=== PATIENT | male | born 1990 | race Caucasian/White ===

== ENCOUNTER 2022-09-11 17:07 | Emergency (ER) | payer MEDICAID, SELFPAY ==
[2022-09-11 17:11] VITALS: BP 123/75; PULSE 75; RESP 18; TEMP 36.8; BMI 25.1
--- NOTE | 2022-09-11 17:17 | ED_ITS ---
HPI - General Adult General Time Seen by Provider: 17:18 Date Seen: 09/11/22 Chief complaint: Extremity Pain/Injury, Upper Stated complaint: Pain on back of right leg Time Seen by Provider: 09/11/22 17:08 Source: patient and RN notes reviewed Mode of arrival: ambulatory Limitations: no limitations History of Present Illness HPI narrative: Chest CT is a 32-year-old male coming in with right thigh pain, upper inner thigh that it is hurting. He states it is like an ache. It hurts if it is touched. He does feel he can walk okay but when driving it bothers him. 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 It is in the upper right medial thigh. Denies any trauma. Has not done any activity other than may be ride his motorcycle which he had not done for while. No acute shortness of breath or chest pain at this time but states every once in a while he will get a fleeting chest pain that preceded this. No fevers or chills. He is concerned that it might be a blood clot. Does not seem like there is pain in the knee or in the lower extremity, no back pain with this. He states his dad has had a heart attack and stroke, also believes that his dad has had blood clots in his extremities. Related Data Home Medications Medication Instructions Recorded Confirmed dextroamphetamine-amphetamine ER PO 09/11/22 20 mg 24hr capsule,extend release (Adderall XR) trazodone 50 mg tablet mg 09/11/22 Allergies Allergy/AdvReac Type Severity Reaction Status Date / Time No Known Drug Allergies Allergy Verified 09/11/22 17:15 Review of Systems Status of ROS: Reports: 6 or more systems reviewed and unremarkable except as noted in History and below Exam Const: Vital Signs, click to edit/add: Vital Signs - 24 hr 09/11/22 17:11 Temperature 98.3 F Pulse Rate [Right Pulse Oximeter] 75 Respiratory Rate 18 Blood Pressure [Ri ght Upper Arm] 123/75 Documenting provider has reviewed patient's vital signs: yes Common normals: no apparent distress, average body habitus, oriented x3, no limitations, healthy appearing, alert and well nourished General appearance: cooperative and comfortable HENMT: Common normals: hearing grossly normal bilaterally Eye: Common normals: PERRL, EOMs intact bilaterally, conjunctivae normal and no scleral icterus Conjunctiva: conjunctiva(e) normal Pupil: PERRL Resp: Common normals: normal respiratory effort, no retractions, no use of accessory muscles and clear to auscultation bilaterally Auscultation: clear to auscultation bilaterally Cardio: Common normals: regular rate, regular rhythm, S1 normal heart sound, S2 normal heart sound, no gallops, no clicks and no murmurs Rate: regular rate Rhythm: regular rhythm Heart sounds: S1 normal and S2 normal Extremity: Other: On inspection of his lower extremities, right side does seem definitely visibly larger than the other but there is no overlying skin change such is bruising, rash, petechial change, or ecchymosis, no erythema. His gait is normal. Seems to have full range of motion of his extremities. He is palpably tender along the medial thigh in it almost has a thicker indurated feeling deeper than the subcutaneous tissue. I do not not feel a definite discrete mass. The knee joint on this right leg is fully mobile no joint effusion. Normal lower extremity below the knee. Certainly no edema within the lower extremity. Neuro: Common normals: oriented x3 Sensorium/orientation: alert Course Course Hospital Course: We will obtain an ultrasound to rule out DVT. Certainly could be musculoskeletal issues including but not limited to mass. He is hemodynamically stable. Reevaluation(s) Reevaluation #1: Reviewed with patient that the preliminary report per the rn telephone triage is that there is no DVT. She feels the area of tenderness is over the hamstrings clinically on her impression. Radiology over-read it is waiting but given there is no DVT think this patient can discharge for further outpatient follow-up. Have reviewed with him that if he has ongoing symptoms he really needs to follow up and advanced imaging such as an MRI might need to be done of this extremity. There is no evidence of infection at this time but should he develop fever or redness of the area, would seek re-evaluation for that consideration. I cannot do MRI imaging at this time nor does seem to be needed emergently. Time: 17:54 Vital Signs Vital signs: Initial Vital Signs Temperature 98.3 F 09/11/22 17:11 Temperature Source Temporal Artery Scan 09/11/22 17:11 Pulse Rate 75 09/11/22 17:11 Respiratory Rate 18 09/11/22 17:11 Blood Pressure 123/75 09/11/22 17:11 Blood Pressure Mean 91 09/11/22 17:11 Blood Pressure Position Sitting 09/11/22 17:11 Vital Signs Temperature 98.3 F 09/11/22 17:11 Pulse Rate 75 09/11/22 17:11 Respiratory Rate 18 09/11/22 17:11 Blood Pressure 123/75 09/11/22 17:11 Temperature 98.3 F 09/11/22 17:11 Pulse Rate 75 09/11/22 17:11 Respiratory Rate 18 09/11/22 17:11 Blood Pressure 123/75 09/11/22 17:11 Critical Care Time Critical Care Time Critical Care Time: No Discharge Plan Discharge Clinical Impression: Acute pain of right thigh Condition: Stable Instructions: Leg Pain (ED) Additional Instructions: Follow-up with your primary care provider or contact Orthopedics for further evaluation and management of ongoing symptoms. Phone number for orthopedic office is [phone]. Can try Tylenol and/or ibuprofen as needed for pain control, follow bottle directions for dosing. Try icing the area and see if it helps. If I seems to make it worse, can try heat instead. Can try questioning under the leg to decrease pain. Ultimately, if pain is worsening, leg is increasing in size, have any development of fevers or redness over this leg, do need to be re-evaluated. Activity Level: Activity as Tolerated Prescriptions: No Action trazodone 50 mg tablet dextroamphetamine-amphetamine [Adderall XR] 20 mg capsule,extended release 24hr PO Follow Up/Referrals: Lexi Lovelace PA-C [Primary Care Provider] - Stand Alone Forms: [employer] Info Instructions
--- NOTE | 2022-09-11 17:21 | CRLHL7_ITS ---
For Patients: As a result of the Century Cures Act, medical imaging exams and procedure reports are released immediately into your electronic medical record. You may view this report before your referring provider. If you have questions, please contact your health care provider. INDICATION: Right posterior thigh pain. COMPARISON: None available. FINDINGS: Ultrasound of the venous drainage of the right lower extremity was performed using real-time talavera scale imaging (B mode 2D), color flow Doppler and spectral analysis. There is no evidence of deep venous thrombosis. There is normal antegrade flow from the posterior tibial and peroneal veins superiorly through the common femoral vein. There is normal augmentation and compressibility of these veins. The area of pain corresponds to the right hamstring muscle which is normal in appearance on ultrasound examination. The left common femoral vein is widely patent. IMPRESSION: No evidence of deep venous thrombosis on ultrasound examination of the right lower extremity. Dictated by Raghavendra Flores MD @ 09/11/2022 6:40:29 PM (Electronically Signed)
--- NOTE | 2022-09-11 17:29 | ED.NURSE ---
Patient to radiology for u/s.
== END 2022-09-11 18:11 | disposition home or self-care (01) ==
LOC: ED 18:07
PROVIDERS: Emergency Provider Family Medicine; PCP Physician Assistant Medical
DX: M79.651 Pain in right thigh (principal)
CPT/HCPCS: 93971; 99283

== ENCOUNTER 2023-06-04 18:15 | Emergency (ER) | payer MEDICAID, SELFPAY ==
[2023-06-04 18:16] VITALS: BP 123/78; PULSE 92; RESP 16; TEMP 37.1; O2SAT 100; BMI 22.8
--- NOTE | 2023-06-04 18:35 | CRLHL7_ITS ---
For Patients: As a result of the Cures Act, medical imaging exams and procedure reports are released immediately into your electronic medical record. You may view this report before your referring provider. If you have questions, please contact your health care provider. Indication: Trauma. Technique: Left ankle, 3 views. Comparison: None. Findings/Impression: Bones: Alignment is normal. No displaced fractures or bone lesions. Joint spaces: Unremarkable. Soft tissues: Unremarkable. Dictated by Francisco Schulte MD @ 06/04/2023 7:18:20 PM (Electronically Signed)
--- NOTE | 2023-06-04 18:42 | ED.LOWEXIN ---
HPI - Extremity Injury (Lower) General Chief Complaint: Extremity Pain/Injury, Lower Stated Complaint: L ankle injury Time Seen by Provider: 06/04/23 18:21 History of Present Illness HPI Narrative: This 32-year-old male comes in with an injury to his left ankle that occurred yesterday. He stepped on a uneven surface and rolled his ankle and has bruising and swelling on the lateral aspect of the left ankle. He does not report any other injury. He has been ambulating at times on this injury but reports significant discomfort. Related Data Home Medications Medication Instructions Recorded Confirmed dextroamphetamine-amphetamine ER PO 09/11/22 20 mg 24hr capsule,extend release (Adderall XR) trazodone 50 mg tablet mg 09/11/22 Previous Rx's Medication Instructions Recorded ketorolac 10 mg tablet 10 mg PO Q8H 5 days #15 tabs 06/04/23 Allergies Allergy/AdvReac Type Severity Reaction Status Date / Time No Known Drug Allergies Allergy Verified 06/04/23 18:20 Review of Systems Status of ROS: Reports: 10 or more systems reviewed and unremarkable except as noted in History and below Narrative: Constitutional: No fevers, no weight gain or loss. Eyes: No discharge. No vision changes. HENT: No congestion, no sore throat, no ear pain. Cardiovascular: No chest pain, no palpitations. Respiratory: No shortness of breath, no wheezes, no cough. Gastrointestinal: No abdominal pain, no vomiting, no diarrhea. Genitourinary: No dysuria, no hematuria. Musculoskeletal: Left ankle injury as described above. Skin: No rashes, no pruritis. Neurological: No dizziness, weakness, sensory change, speech change. Endo/Heme/Allergies: No bruising or bleeding. No polydipsia. Pysch: no suicidality, no anxiety, no insomnia. All other systems reviewed and are negative. PFSH PFSH Social History Smoking Status: Former smoker Do you use any of these nicotine containing products: None Second hand tobacco smoke exposure: No How often do you have a drink containing alcohol: monthly or less How often do you have six or more drinks on one occasion: Never AUDIT-C Alcohol total score: 1 Non-prescribed substance use: marijuana (any form) Exam Narrative: Exam Narrative: Constitutional: Well-developed, well-nourished, no acute distress. HEENT: Normocephalic, atraumatic. Neck: Normal range of motion. Nontender. Supple. Heart: Regular. No murmurs. Normal rate. Intact distal pulses. Lungs: Clear to auscultation. No chest discomfort. No wheezes, rhonchi, or rales. Abdomen: Normal bowel sounds. Nontender. No rebound tenderness. Genitalia: Deferred. Back: No midline tenderness. Normal range of motion. Extremities: Left ankle has significant swelling on the lateral aspect with bruising. No tenderness when palpating the medial malleolus. No ligament instability. Skin: Intact. No rash. Warm. No erythema or pallor. Neurologic: No altered sensation. No weakness. Alert and oriented. Psychiatric: No suicidality. No anxiety or depression. No insomnia. Nursing notes and vitals signs are reviewed. Const: Vital Signs, click to edit/add: Vital Signs - 24 hr 06/04/23 18:16 Temperature 98.7 F Pulse Rate [Left P ulse Oximeter] 92 Respiratory Rate 16 Blood Pressure [Ri ght Upper Arm] 123/78 Pulse Oximetry 100 Oxygen Delivery Me thod Room Air Course Vital Signs Vital signs: Initial Vital Signs Temperature 98.7 F 06/04/23 18:16 Temperature Source Temporal Artery Scan 06/04/23 18:16 Pulse Rate 92 06/04/23 18:16 Respiratory Rate 16 06/04/23 18:16 Blood Pressure 123/78 06/04/23 18:16 Blood Pressure Mean 93 06/04/23 18:16 Blood Pressure Position Sitting 06/04/23 18:16 Pulse Oximetry 100 06/04/23 18:16 Oxygen Delivery Method Room Air 06/04/23 18:16 Vital Signs Temperature 98.7 F 06/04/23 18:16 Pulse Rate 92 06/04/23 18:16 Respiratory Rate 16 06/04/23 18:16 Blood Pressure 123/78 06/04/23 18:16 Pulse Oximetry 100 06/04/23 18:16 Oxygen Delivery Method Room Air 06/04/23 18:16 Temperature 98.7 F 06/04/23 18:16 Pulse Rate 92 06/04/23 18:16 Respiratory Rate 16 06/04/23 18:16 Blood Pressure 123/78 06/04/23 18:16 Pulse Oximetry 100 06/04/23 18:16 Oxygen Delivery Method Room Air 06/04/23 18:16 MDM - Extremity Injury (Lower) MDM Narrative Medical decision making narrative: This patient comes in with an injury to his left ankle. He has significant swelling and bruising on the lateral aspect. His ligament exam however is normal in that there is no instability of the ankle joint. X-ray images by my review with radiology report pending shows no sign of fracture or dislocation. The patient is able to ambulate. He is able to do so with a limp but seems to be functioning well enough and therefore is declining any crutches or other aids for ambulating. I did provide a prescription for Toradol. I encouraged increase activity as tolerated. Discharge Plan Discharge Clinical Impression: Ankle sprain and strain Patient Disposition: Home, Self-Care Condition: Stable Instructions: Ankle Sprain (DC), Ankle Strain (ED) Additional Instructions: Take medication as prescribed and needed. Increase activity as tolerated. Follow up with MD or return if worsening. Prescriptions: New ketorolac 10 mg tablet 10 mg PO Q8H 5 Days Qty: 15 0RF No Action trazodone 50 mg tablet dextroamphetamine-amphetamine [Adderall XR] 20 mg capsule,extended release 24hr PO Follow Up/Referrals: Lexi Lovelace PA-C [Primary Care Provider] - Stand Alone Forms: [employer] Info Instructions
== END 2023-06-04 19:27 | disposition home or self-care (01) ==
PROVIDERS: Emergency Provider Emergency Medicine Emergency Medical Services; PCP Physician Assistant Medical
DX: S93.402A Sprain of unspecified ligament of left ankle, initial encounter (principal); X50.1XXA Overexertion from prolonged static or awkward postures, initial encounter
CPT/HCPCS: 73610; 99283; 99284

== ENCOUNTER 2023-07-30 17:16 | Emergency (ER) | payer MEDICAID, SELFPAY ==
[2023-07-30 17:24] VITALS: BP 133/77; PULSE 92; RESP 18; TEMP 37.4; O2SAT 99; BMI 26.6
--- NOTE | 2023-07-30 18:02 | ED.SKABFB ---
HPI - Skin/Abscess/Foreign Bdy General Date Seen: 07/30/23 Chief complaint: Skin/Abscess/Foreign Body Stated complaint: Chest pain, arms itch Time Seen by Provider: 07/30/23 17:49 Source: patient Mode of arrival: ambulatory Limitations: no limitations History of Present Illness HPI narrative: Patient is a 33-year-old gentleman who presents here for evaluation of a rash that he has had on his arms for approximately 1 week, is only on his forearms, does not go above this. He notices a very itchy, and relates it to starting Seroquel approximately 3 weeks ago. Takes the Seroquel for insomnia. He was on trazodone before would like to go back on this. Does notice any rash anywhere else. Denies any shortness of breath or any oropharyngeal swelling. He also has a history of chest pain that dates back months whenever he takes a deep breath any can feel a rate of the xiphoid, he is not short of breath, and notices no pain with exertion. No history of trauma or injury MD complaint: rash Relieving factors: none Exacerbating factors: none Context: none Associated symptoms: denies other symptoms Treatments prior to arrival: none Related Data Home Medications Medication Instructions Recorded Confirmed dextroamphetamine-amphetamine ER 20 mg PO 09/11/22 20 mg 24hr capsule,extend release (Adderall XR) trazodone 50 mg tablet 50 mg 09/11/22 quetiapine 50 mg tablet,extended 50 mg PO QPM 07/30/23 07/30/23 release 24 hr Allergies Allergy/AdvReac Type Severity Reaction Status Date / Time No Known Drug Allergies Allergy Verified 07/30/23 17:24 Review of Systems Status of ROS: Reports: 10 or more systems reviewed and unremarkable except as noted in History and below [facility] Social History Smoking Status: Former smoker Do you use any of these nicotine containing products: None Second hand tobacco smoke exposure: No How often do you have a drink containing alcohol: monthly or less How many standard drinks containing alcohol do you have on a typical day: 1 or 2 How often do you have six or more drinks on one occasion: Never AUDIT-C Alcohol total score: 1 Non-prescribed substance use: marijuana (any form) service: No Exam Narrative: Exam Narrative: On examination in room 6 he is in no apparent distress he is pleasant alert, there is a bit of excoriated rash on his extensor surfaces of his arms bilaterally. Does not go above his elbows. It does not appear to be so much on his hands. No other rashes noted anywhere, oropharynx is normal, neck is supple chest is clear heart sounds are normal. Const: Vital Signs, click to edit/add: Vital Signs - 24 hr 07/30/23 17:24 Temperature 99.3 F Pulse Rate [Pulse Oximeter] 92 Respiratory Rate 18 Blood Pressure [Ri ght Upper Arm] 133/77 Pulse Oximetry 99 Oxygen Delivery Me thod Room Air Documenting provider has reviewed patient's vital signs: yes Course Vital Signs Vital signs: Initial Vital Signs Temperature 99.3 F 07/30/23 17:24 Temperature Source Temporal Artery Scan 07/30/23 17:24 Pulse Rate 92 07/30/23 17:24 Pulse Rhythm Regular 07/30/23 17:24 Pulse Strength 3+ Normal 07/30/23 17:24 Respiratory Rate 18 07/30/23 17:24 Blood Pressure 133/77 07/30/23 17:24 Blood Pressure Mean 95 07/30/23 17:24 Blood Pressure Position Sitting 07/30/23 17:24 Pulse Oximetry 99 07/30/23 17:24 Oxygen Delivery Method Room Air 07/30/23 17:24 Vital Signs Temperature 99.3 F 07/30/23 17:24 Pulse Rate 92 07/30/23 17:24 Respiratory Rate 18 07/30/23 17:24 Blood Pressure 133/77 07/30/23 17:24 Pulse Oximetry 99 07/30/23 17:24 Oxygen Delivery Method Room Air 07/30/23 17:24 Temperature 99.3 F 07/30/23 17:24 Pulse Rate 92 07/30/23 17:24 Respiratory Rate 18 07/30/23 17:24 Blood Pressure 133/77 07/30/23 17:24 Pulse Oximetry 99 07/30/23 17:24 Oxygen Delivery Method Room Air 07/30/23 17:24 MDM - Skin/Abscess/Foreign Bdy MDM Narrative Medical decision making narrative: I discussed with him I do not think this is an acute rash, this seems to be more like a plant dermatitis type situation. I would recommend that he stay on the Seroquel in follow-up with his primary to see about this. We will do a chest x-ray to check on his chest, but this sounds like a more chronic issue. Medical Records Attestation: I reviewed the patient's medical records. Imaging Data Chest x-ray: Attestation: I have reviewed the pertinent imaging results. My impression: Negative chest x-ray Discharge Plan Discharge Clinical Impression: Rash, Chest pain Patient Disposition: Home, Self-Care Condition: Stable Instructions: Chest Pain (DC), Acute Rash (ED) Additional Instructions: Home, rest, chest x-ray was negative, reassurance given. I do believe the rash on her arms is not from her Seroquel, and more likely from something you been exposed to either plant, or sun. Claritin would be a good medication to take 10 mg a day. Follow-up with Lexi Prescriptions: No Action quetiapine 50 mg tablet extended release 24 hr 50 mg PO QPM trazodone 50 mg tablet 50 mg Hold Instructions: currently on hold dextroamphetamine-amphetamine [Adderall XR] 20 mg capsule,extended release 24hr 20 mg PO Follow Up/Referrals: Lexi Lovelace PA-C [Primary Care Provider] - Stand Alone Forms: [employer] Info Instructions
--- NOTE | 2023-07-30 18:13 | CRLHL7_ITS ---
For Patients: As a result of the Century Cures Act, medical imaging exams and procedure reports are released immediately into your electronic medical record. You may view this report before your referring provider. If you have questions, please contact your health care provider. INDICATION: Chest pain COMPARISON: None TECHNIQUE: PA and lateral views of the chest were acquired FINDINGS: TUBES AND LINES: None. HEART AND MEDIASTINUM: The heart size is normal. The mediastinal contour appears normal for patient age. LUNGS AND PLEURAL SPACES: The lungs appear normal.The pleural spaces are unremarkable. OSSEOUS STRUCTURES: Age-appropriate appearance. No acute focal finding. IMPRESSION: No evidence of active pulmonary disease. Dictated by Bonilla Guido MD @ 07/30/2023 7:06:54 PM (Electronically Signed)
== END 2023-07-30 18:40 | disposition home or self-care (01) ==
LOC: ED 18:09
PROVIDERS: Emergency Provider Family Medicine; PCP Physician Assistant Medical
DX: R21 Rash and other nonspecific skin eruption (principal); R07.9 Chest pain, unspecified
CPT/HCPCS: 71046; 99283; 99284

== ENCOUNTER 2023-08-18 09:43 | Emergency (ER) | payer MEDICAID, SELFPAY ==
[2023-08-18] VITALS (16 sets, daily range): BP systolic 106–128; BP diastolic 58–78; PULSE 88–98; RESP 16; TEMP 37; O2SAT 96–99; BMI 22.8
[2023-08-18] MEDS: LORazepam 2 MG/ML inj 1 MG IM (10:33)
[2023-08-18] MEDS: KETOROLAC 30 MG/ML inj IM (10:34)
[2023-08-18 11:00] LABS: Amphetamine Screen Urine Negative (Negative); Barbiturate Screen Urine Negative (Negative); Benzodiazepines Screen Urine Negative (Negative); Cannabinoid Screen Urine POSITIVE (Negative); Cocaine Screen Urine Negative (Negative); Methadone Screen Urine Negative (Negative); Methamphetamines Screen Urine Negative (Negative); Opiate Screen Urine Negative (Negative); Oxycodone Screen Urine Negative (Negative); Phencyclidine Screen Urine Negative (Negative); Tricyclic Antidepressant Urine Negative (Negative)
--- NOTE | 2023-08-18 11:25 | CRLHL7_ITS ---
For Patients: As a result of the Cures Act, medical imaging exams and procedure reports are released immediately into your electronic medical record. You may view this report before your referring provider. If you have questions, please contact your health care provider. Indication: Back pain Technique: Lumbar spine 2 view Comparison: CT June 27, 2019 IMPRESSION: No fractures. Disc spaces maintained. No spondylolisthesis. Dictated by Zechariah García MD @ 08/18/2023 11:56:22 AM (Electronically Signed)
--- NOTE | 2023-08-18 11:36 | ED.BACK ---
HPI - Back Pain/Injury General Date Seen: 08/18/23 Chief Complaint: Back Injury/Pain Stated Complaint: Lower back pain Time Seen by Provider: 08/18/23 10:19 Source: patient Mode of arrival: wheelchair Limitations: no limitations History of Present Illness HPI Narrative: Patient is a 33-year-old gentleman who presents here with back pain, he tried to go to work this morning in the back pain was so bad in his lower back into both of his hamstrings, associated with spasm that he came to the emergency room, the nurse had to bring him to the back in a wheelchair. He is laying in the position on his right side when I see him in the room. She describes no history of falls injury, trauma, fevers chills or sweats associated with this. He does have a remote past history 10 years ago of her when use. Tells me that he beat that it has not used any narcotics since. No history of any fevers chills or sweats, redness rashes into the legs, bowel or bladder or any incontinence of stool. He is not taking any medication today, he did take some Tylenol from his mom he yesterday, as she is eye re no patient. There is a have past history of occasional back pain although he tells me not this bad MD elicited complaint: back pain Severity: severe Similar Symptoms Previously: No Quality: burning, sharp, dull and spasming Location: lumbar spine Radiation: left upper leg and right upper leg Exacerbating factors: movement, sitting upright, walking and coughing/sneezing Relieving factors: immobilization and medication Treatments prior to arrival: acetaminophen Work related injury: No Related Data Home Medications Medication Instructions Recorded Confirmed dextroamphetamine-amphetamine ER 40 mg PO DAILY 09/11/22 08/18/23 20 mg 24hr capsule,extend release (Adderall XR) quetiapine 50 mg tablet,extended 50 mg PO QPM 07/30/23 08/18/23 release 24 hr Previous Rx's Medication Instructions Recorded cyclobenzaprine 10 mg tablet 10 mg PO TID PRN muscle spasm #30 08/18/23 tabs ketorolac 10 mg tablet 10 mg PO TID PRN pain 5 days #14 08/18/23 tabs prednisone 20 mg tablet 20 mg PO BID #10 tabs 08/18/23 Allergies Allergy/AdvReac Type Severity Reaction Status Date / Time No Known Drug Allergies Allergy Verified 08/18/23 09:50 Review of Systems Status of ROS: Reports: 10 or more systems reviewed and unremarkable except as noted in History and below [facility] Social History Smoking Status: Current every day smoker What tobacco products do you use: cigars Do you use any of these nicotine containing products: None Second hand tobacco smoke exposure: No How often do you have a drink containing alcohol: never AUDIT-C Alcohol total score: 0 Non-prescribed substance use: marijuana (any form) service: No Exam Narrative: Exam Narrative: Patient is seen in room 7, he is in some moderate distress, any sort of touching his lower back causes him to be in pain. There is no redness rashes, he presents in the flexed posture position. His abdomen is otherwise soft there is no guarding no past splenomegaly, normal perianal sensation is noted. He is able straight no both of his legs, his EHLs great toe flexors ankle dorsiflexors plantar flexors knee flexors and extensors and hip flexors are graded 5/5 power bilaterally SLR is lying down, or positive approximately 20? with pain. And spasm in his lower back, there is no redness rashes overload his lower extremities. We will give him some Toradol, and some Ativan, so would lecandida can get some imaging, Const: Vital Signs, click to edit/add: Vital Signs - 24 hr 08/18/23 09:51 08/18/23 10:14 08/18/23 10:15 Temperature 98.6 F Pulse Rate 94 93 Pulse Rate [Pulse Oximeter] 88 Respiratory Rate 16 16 Blood Pressure 113/72 Blood Pressure [Le ft Upper Arm] 128/78 Pulse Oximetry 99 96 98 Oxygen Delivery Me thod Room Air 08/18/23 10:22 08/18/23 10:30 08/18/23 10:32 Temperature Pulse Rate 98 89 91 Pulse Rate [Pulse Oximeter] Respiratory Rate Blood Pressure 107/58 L Blood Pressure [Le ft Upper Arm] Pulse Oximetry 99 98 97 Oxygen Delivery Me thod 08/18/23 10:45 08/18/23 11:00 08/18/23 11:01 Temperature Pulse Rate 92 88 93 Pulse Rate [Pulse Oximeter] Respiratory Rate Blood Pressure 106/62 Blood Pressure [Le ft Upper Arm] Pulse Oximetry 98 96 96 Oxygen Delivery Me thod Course Course ED Course: X-ray showed no acute findings, patient responded well to the Ativan, and Toradol, is able to walk around and was able to walk about here with no problems. He told me that he does use Flexeril from his primary care physician and I will call this in. We also let some prednisone some Toradol as needed. Ice also. He was comfortable this plan is, we went over with worsening signs and symptoms. Vital Signs Vital signs: Initial Vital Signs Temperature 98.6 F 08/18/23 09:51 Temperature Source Temporal Artery Scan 08/18/23 09:51 Pulse Rate 88 08/18/23 09:51 Pulse Rhythm Regular 08/18/23 09:51 Pulse Strength 3+ Normal 08/18/23 09:51 Respiratory Rate 16 08/18/23 09:51 Blood Pressure 128/78 08/18/23 09:51 Blood Pressure Mean 94 08/18/23 09:51 Blood Pressure Position Supine 08/18/23 09:51 Pulse Oximetry 99 08/18/23 09:51 Oxygen Delivery Method Room Air 08/18/23 09:51 Vital Signs Temperature 98.6 F 08/18/23 09:51 Pulse Rate 88 08/18/23 09:51 Respiratory Rate 16 08/18/23 09:51 Blood Pressure 128/78 08/18/23 09:51 Pulse Oximetry 99 08/18/23 09:51 Oxygen Delivery Method Room Air 08/18/23 09:51 Temperature 98.6 F 08/18/23 09:51 Pulse Rate 93 08/18/23 11:01 Respiratory Rate 16 08/18/23 10:15 Blood Pressure 106/62 08/18/23 11:01 Pulse Oximetry 96 08/18/23 11:01 Oxygen Delivery Method Room Air 08/18/23 09:51 MDM - Back Pain/Injury MDM Narrative Medical decision making narrative: Life-threatening differential diagnosis considered include: Cauda equina an epidural abscess, other differential diagnosis considered includes sprain, contusion, nerve root entrapment, radiculopathy, muscle spasm, urolithiasis, lumbar fracture, pyelonephritis, appendicitis, biliary colic, as well as other etiologies. The patient denies saddle anesthesia bowel or bladder incontinence or lower extremity weakness, recent weight loss, or history of malignancy. Medical Records Attestation: I reviewed the patient's medical records. Lab Data Attestation: I reviewed the patient's lab results. Labs: Lab Results 08/18/23 Range/Units Unknown Urine Opiates Screen Negative (Negative) Ur Oxycodone Screen Negative (Negative) Urine Methadone Screen Negative (Negative) Ur Propoxyphene Screen Negative (Negative) Ur Barbiturates Screen Negative (Negative) U Tricyclic Antidepress Negative (Negative) Ur Phencyclidine Scrn Negative (Negative) Ur Amphetamines Screen Negative (Negative) U Methamphetamines Scrn Negative (Negative) U Benzodiazepines Scrn Negative (Negative) Urine Cocaine Screen Negative (Negative) U Marijuana (THC) Screen POSITIVE A (Negative) Ur Drug Screen Comment See Note Imaging Data Lumbar x-ray: Attestation: I have reviewed the pertinent imaging results. My impression: No acute findings Radiologist's impression: Patient: PAVEL FELTON Facility: [facility] Site . Site : 1990 Study: XRay Spine Lumbar 2 VIEWS-08/18/2023 11:50:11 AM Ordering Physician: Joseline Deng Final Report: Indication: Back pain Technique: Lumbar spine 2 view Comparison: CT June 27, 2019 IMPRESSION: No fractures. Disc spaces maintained. No spondylolisthesis. Dictated by Zechariah García MD @ 08/18/2023 11:56:22 AM (Electronic Signature) Discharge Plan Discharge Clinical Impression: Strain of lumbar region Patient Disposition: Home, Self-Care Condition: Improved Instructions: Muscle Strain (DC), Back Pain (ED), Lumbar Brace (DC), Lower Back Exercises (ED), Cold Compress or Soak (ED) Additional Instructions: Home rest medications as directed, follow-up with primary care in 3-4 days if ongoing care or work note needed. I have given you work note for 72 hours. Your x-rays were negative, Return here if signs and symptoms of worsening, Activity Level: Light activity Prescriptions: New cyclobenzaprine 10 mg tablet 10 mg PO TID PRN (Reason: muscle spasm) Qty: 30 0RF prednisone 20 mg tablet 20 mg PO BID Qty: 10 0RF ketorolac 10 mg tablet 10 mg PO TID PRN (Reason: pain) 5 Days Qty: 14 0RF No Action quetiapine 50 mg tablet extended release 24 hr 50 mg PO QPM dextroamphetamine-amphetamine [Adderall XR] 20 mg capsule,extended release 24hr 40 mg PO DAILY Follow Up/Referrals: Lexi Lovelace PA-C [Primary Care Provider] - Stand Alone Forms: [facility] Info Instructions
--- NOTE | 2023-08-18 12:31 | ED.NURSE ---
Ambulated in hallway stand by assist for 30 feet. Said ouch multiple times. Able bare wait without being unbalanced. Asked patient if he felt safe to go home. Patient stated I have to, i have no choice. Patient requested a muscle relaxer from .
== END 2023-08-18 12:53 | disposition home or self-care (01) ==
PROVIDERS: Emergency Provider Family Medicine; PCP Physician Assistant Medical
DX: S39.012A Strain of muscle, fascia and tendon of lower back, initial encounter (principal)
CPT/HCPCS: 72100; 80306; 99283; 99284; J1885; J2060

== ENCOUNTER 2024-01-02 08:37 | Emergency (ER) | payer OTHER, MEDICAID, SELFPAY ==
[2024-01-02 08:47] VITALS: BP 119/77; PULSE 75; RESP 16; TEMP 36.7; O2SAT 98; BMI 26.6
--- NOTE | 2024-01-02 09:19 | ED.GENADULT ---
HPI - General Adult General Time Seen by Provider: 09:19 Date Seen: 01/02/24 Chief complaint: Nausea/Vomiting Stated complaint: chest pains Time Seen by Provider: 01/02/24 09:19 Source: patient and RN notes reviewed Mode of arrival: ambulatory Limitations: no limitations History of Present Illness HPI narrative: This 33-year-old male who is coming in with multiple concerns. Has had really watery diarrhea for about 3 days. No reported blood. No reported fevers. Overnight he developed nausea and vomiting. He has not been able to keep down any fluids. He is wondering if he needs some antibiotics or prednisone to settle his stomach and got down. He also brings up his chest pain. He states he has been to his doctor, he gets freaked out because his dad had a stroke and a heart attack. He has had this chest pain for quite some time. He states months, told me a couple months. However, in review of his records, see that he was in on 07/30/2023 to the ER. He did bring up chest discomfort during that visit, was also being seen for rash. He describes this as sharp sometimes with turning or movement. He did have a negative chest x-ray on his visit in July. He had already had a point of care drawn here and I have been able to review his EKG, they are normal. He wonders if he should go to [place] or be seen at the [facility]. I reviewed with him that this pain he is describing is very likely not his heart. It sounds musculoskeletal. He points along his anterior costochondral junction where he will feel this pain. He states he is worried about possible asbestosis or mold as he lives in a house is over 200 years old. I did review with him that asbestosis will show up on a chest x-ray but there is no specific blood test for this or for mold that I am aware of. He was wondering if blood work could be done for that. He does describe the sensation of the chest pain when he gets it is almost like glass in his chest. Related Data Home Medications Medication Instructions Recorded Confirmed dextroamphetamine-amphetamine ER 40 mg PO DAILY 09/11/22 08/18/23 20 mg 24hr capsule,extend release (Adderall XR) quetiapine 50 mg tablet,extended 50 mg PO QPM 07/30/23 08/18/23 release 24 hr Previous Rx's Medication Instructions Recorded cyclobenzaprine 10 mg tablet 10 mg PO TID PRN muscle spasm #30 08/18/23 tabs ketorolac 10 mg tablet 10 mg PO TID PRN pain 5 days #14 08/18/23 tabs prednisone 20 mg tablet 20 mg PO BID #10 tabs 08/18/23 ondansetron 4 mg disintegrating 4 mg PO Q6H PRN nausea and 01/02/24 tablet vomiting #20 tabs Allergies Allergy/AdvReac Type Severity Reaction Status Date / Time No Known Drug Allergies Allergy Verified 08/18/23 09:50 Review of Systems Status of ROS: Reports: 6 or more systems reviewed and unremarkable except as noted in History and below [facility] Social History Smoking Status: Current some day smoker What tobacco products do you use: cigars Do you use any of these nicotine containing products: None Second hand tobacco smoke exposure: No How often do you have a drink containing alcohol: never How often do you have six or more drinks on one occasion: Never AUDIT-C Alcohol total score: 0 Non-prescribed substance use: former substance user and marijuana (any form) service: No Exam Const: Vital Signs, click to edit/add: Vital Signs - 24 hr 01/02/24 08:47 01/02/24 09:30 01/02/24 10:14 Temperature 98.0 F Pulse Rate [Pulse Oximeter] 75 80 Respiratory Rate 16 16 Blood Pressure [Ri ght Upper Arm] 119/77 113/67 Pulse Oximetry 98 99 99 Oxygen Delivery Me thod Room Air Room Air Markel is a 33-year-old male that is alert, interactive, no apparent distress. Sclera clear, symmetrical facial function coming able speak in complete sentences, speech and voice normal. Lungs are clear, good air entry, no wheezing or crackles. CV regular rate and rhythm, no murmur, normal S1-S2, no S3-S4. He does complain of some pain along the right costochondral junction, it is not specifically over just 1 area, difficult to say if this is totally reproducible of his symptoms. Abdomen is soft, nondistended, no organomegaly, nontender, no rebound or guarding, bowel sounds sound normal. He does have many tattoos but note no rash over his skin. Is ambulatory in the ED. Of note, had to go to the bathroom for defecation and did need to stop our evaluation. Documenting provider has reviewed patient's vital signs: yes Course Course ED Course: Will establish an IV, give him IV fluids and Zofran. Will check some baseline labs including a CBC. Will get a portable chest x-ray. His belly is soft, history seems to be consistent with a viral gastroenteritis likely. Do need to find out if he has had any travel or ill contacts, do need to discuss with him further rationale for none treatment with antibiotics or steroids but will await some of our labs 1st. May need to consider stool studies. This does not seem to be consistent with the level of illness I would expect for C difficile colitis. Outside of the chest x-ray which will be portable, have reviewed with him as troponin and EKG are normal. His symptoms are not consistent with cardiac disease and have been present for over 6 months. I do understand his concern in he certainly is at risk for heart disease in the future given his family history, male status. Reevaluation(s) Time of Reevaluation #1: 11:15 Reevaluation #1: Patient is requesting to go at this time, did apologize that had not been able to get back in quicker but there was a high volume of patients that proceeded to come in the ER after him. Reviewed his normal labs. He was wondering about being on prednisone her antibiotic, discussed the rationale of why those are not indicated in actually contraindicated. He has not had any travel, no known ill contacts. His daughter is had a bit of a cough at home but no diarrheal or vomiting symptoms. He is feeling better, I did pull his IV while in the room as he did wanted out. 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 We discussed use of Zofran and discharge to home for further outpatient monitoring. Vital Signs Vital signs: Initial Vital Signs Temperature 98.0 F 01/02/24 08:47 Temperature Source Temporal Artery Scan 01/02/24 08:47 Pulse Rate 75 01/02/24 08:47 Respiratory Rate 16 01/02/24 08:47 Blood Pressure 119/77 01/02/24 08:47 Blood Pressure Mean 91 01/02/24 08:47 Blood Pressure Position Supine 01/02/24 08:47 Pulse Oximetry 98 01/02/24 08:47 Oxygen Delivery Method Room Air 01/02/24 08:47 Vital Signs Temperature 98.0 F 01/02/24 08:47 Pulse Rate 75 01/02/24 08:47 Respiratory Rate 16 01/02/24 08:47 Blood Pressure 119/77 01/02/24 08:47 Pulse Oximetry 98 01/02/24 08:47 Oxygen Delivery Method Room Air 01/02/24 08:47 Temperature 98.0 F 01/02/24 08:47 Pulse Rate 80 01/02/24 10:14 Respiratory Rate 16 01/02/24 10:14 Blood Pressure 113/67 01/02/24 10:14 Pulse Oximetry 99 01/02/24 10:14 Oxygen Delivery Method Room Air 01/02/24 10:14 Medications Administered Medications: Discontinued Medications Generic Name Dose Route Start Last Admin Trade Name Freq PRN Reason Stop Dose Admin Sodium Chloride 1,000 mls @ 1,000 mls/hr 01/02/24 09:30 01/02/24 10:32 0.9 % Sodium Chloride 1000 Ml IV 01/02/24 10:29 Infused .Q1H MARY ELLEN Infusion Ondansetron HCl 4 mg 01/02/24 09:30 01/02/24 09:40 Ondansetron 2 Mg/Ml Inj IVP 01/02/24 09:31 4 mg ONCE ONE Administration Medical Decision Making Lab Data Lab results reviewed: Yes I reviewed the patient's lab results Labs: Lab Results 01/02/24 Range/Units 09:05 WBC 7.66 (4.50-11.00) K/uL RBC 5.58 (4.30-5.90) m/uL Hgb 16.6 (13.5-17.5) gm/dL Hct 49.0 (37.0-53.0) % MCV 88 (80-100) fL MCH 30 (26-34) pg MCHC 34 (32-36) gm/dL RDW Coeff of Noris 12.1 (11.5-15.5) % Plt Count 383 (140-440) K/uL Neut % (Auto) 63.0 (42.0-72.0) % Lymph % (Auto) 17.9 L (20-44) % Worth % (Auto) 15.7 H (0.0-11.0) % Eos % (Auto) 2.5 (0.0-7.0) % Baso % (Auto) 0.8 (0.0-3.0) % Neut # (Auto) 4.83 (1.7-7.0) K/uL Lymph # (Auto) 1.40 (0.90-2.90) K/uL Worth # (Auto) 1.20 H (0.00-0.90) K/UL Eos # (Auto) 0.19 (0.00-0.50) K/uL Baso # (Auto) 0.06 (0.00-0.30) K/uL Abs Immat Gran (auto) 0.01 (0.00-0.30) K/uL Imm/Tot Granulo (auto) 0.1 % Sodium 140 (135-149) mmol/L Potassium 4.2 (3.6-5.1) mmol/L Chloride 108 (96-114) mmol/L Carbon Dioxide 20 (20-32) mmol/L Anion Gap 12 (7-15) mEq/L BUN 15 (5-24) mg/dL Creatinine 1.0 (0.5-1.5) mg/dL Estimated Creat Clear 106.05 Estimated GFR 103 ml/min Glucose 91 (60-115) mg/dL Lactate 0.8 (0.5-1.9) mmol/L Calcium 9.2 (8.4-10.6) mg/dL Total Bilirubin 1.0 (0.1-1.5) mg/dL AST 35 (12-35) U/L ALT 31 (4-50) U/L Alkaline Phosphatase 76 (40-150) U/L C-Reactive Protein 1.0 (0.5-1.0) mg/dL Total Protein 7.9 (6.0-8.3) g/dL Albumin 4.8 (3.3-5.0) g/dL POC Troponin I 0.00 L (0.01-0.04) ng/ml Imaging Data Chest x-ray: Attestation: I have reviewed the pertinent imaging results. Radiologist's impression: Patient: MARKEL FELTON Facility:[facility] Patient ID:?[id number] Site Patient ID:?[id number]. Site :?1990 Study:?XRay Chest PORTABLE 1 VIEW-01/02/2024 9:55:29 AM Ordering Physician:Jorge Morfin Final Report: INDICATION: Chest pain. TECHNIQUE: Chest 2 views. COMPARISON: Chest radiograph on July 30, 2023 FINDINGS: Cardiovascular and mediastinum: Heart size and vasculature are normal in caliber and appearance. Lungs and pleural spaces: Lungs are clear. No sign of infiltrate or mass. No sign of pleural effusion. No pneumothorax. Bones and soft tissues: No significant findings. IMPRESSION: No acute cardiopulmonary process. Dictated by Juanito Hernandez MD @ 01/02/2024 10:18:17 AM (Electronic Signature) ECG Data Attestation: I personally reviewed and interpreted this ECG as follows: (Normal sinus rhythm, 67 beats per minute. No ischemic change. QT corrected for and 26 milliseconds.) Prior ECG tracings: not available for review Discharge Plan Discharge Clinical Impression: Gastroenteritis and colitis, viral, Musculoskeletal chest pain Patient Disposition: Home, Self-Care Condition: Stable Instructions: Gastroenteritis (ED), Nutrition Tips for Relief of Diarrhea (ED) Additional Instructions: Can use Zofran as needed for any further nausea or vomiting. This will allow you to drink fluids. As you feel better, it advance her diet back to normal. Can follow the handout to help decrease diarrhea, again, as you improve, can go back to her normal diet. If you are not improving over the next 3-5 days, feel you are worsening at any point with development of fevers, blood in stool, abdominal pain, do recommend re-evaluation. I do think your chest pain represents musculoskeletal chest pain, has been present for over 6 months and does seem to come with movement from what you describe. Do recommend that you return to her primary care provider's to discuss this with them further, make sure that they do not want to do any further testing. Activity Level: Activity as Tolerated Prescriptions: New ondansetron 4 mg tablet,disintegrating 4 mg PO Q6H PRN (Reason: nausea and vomiting) Qty: 20 0RF No Action quetiapine 50 mg tablet extended release 24 hr 50 mg PO QPM cyclobenzaprine 10 mg tablet 10 mg PO TID PRN (Reason: muscle spasm) Qty: 30 0RF prednisone 20 mg tablet 20 mg PO BID Qty: 10 0RF ketorolac 10 mg tablet 10 mg PO TID PRN (Reason: pain) 5 Days Qty: 14 0RF dextroamphetamine-amphetamine [Adderall XR] 20 mg capsule,extended release 24hr 40 mg PO DAILY Follow Up/Referrals: Lexi Lovelace, CJ [Primary Care Provider] - Stand Alone [facility]: [facility] Info Instructions
[2024-01-02 09:30] VITALS: O2SAT 99
--- NOTE | 2024-01-02 09:30 | CRLHL7_ITS ---
For Patients: As a result of the Century Cures Act, medical imaging exams and procedure reports are released immediately into your electronic medical record. You may view this report before your referring provider. If you have questions, please contact your health care provider. INDICATION: Chest pain. TECHNIQUE: Chest 2 views. COMPARISON: Chest radiograph on July 30, 2023 FINDINGS: Cardiovascular and mediastinum: Heart size and vasculature are normal in caliber and appearance. Lungs and pleural spaces: Lungs are clear. No sign of infiltrate or mass. No sign of pleural effusion. No pneumothorax. Bones and soft tissues: No significant findings. IMPRESSION: No acute cardiopulmonary process. Dictated by Juanito Hernandez MD @ 01/02/2024 10:18:17 AM (Electronically Signed)
[2024-01-02 09:36] LABS: Basophils Absolute Auto 0.06 K/uL (0.00-0.30); Basophils Percent Auto 0.8 % (0.0-3.0); Eosinophils Absolute Auto 0.19 K/uL (0.00-0.50); Eosinophils Percent Auto 2.5 % (0.0-7.0); Hemoglobin* 16.6 gm/dL (13.5-17.5); Immature Granulocytes Abs Auto 0.01 K/uL (0.00-0.30); Immature Granulocytes Pct Auto 0.1 %; Lactate* 0.8 mmol/L (0.5-1.9); Lymphocytes Percent Auto 17.9 % (20-44); Mean Corpuscular HGB Conc 34 gm/dL (32-36); Mean Corpuscular Hemoglobin 30 pg (26-34); Mean Corpuscular Volume 88 fL (80-100); Monocytes Percent Auto 15.7 % (0.0-11.0); Neutrophils Absolute Auto 4.83 K/uL (1.7-7.0); Platelet Count* 383 K/uL (140-440); RDW Coefficient of Variation % 12.1 % (11.5-15.5); Red Blood Count 5.58 m/uL (4.30-5.90); White Blood Count* 7.66 K/uL (4.50-11.00)
[2024-01-02 09:39] LABS: Albumin* 4.8 g/dL (3.3-5.0); Chloride* 108 mmol/L (96-114); Slide Review Reflex No
[2024-01-02 09:40] LABS: Potassium* 4.2 mmol/L (3.6-5.1); Sodium* 140 mmol/L (135-149)
[2024-01-02] MEDS: ONDANSETRON 2 MG/ML inj 4 MG IVP (09:40)
[2024-01-02] MEDS: 0.9 % SODIUM CHLORIDE 1000 ml 1,000 ML IV (09:40)
[2024-01-02 09:42] LABS: Est. Creatinine Clearance* 106.05; Estimated Glomerular Filt Rate 103 ml/min
[2024-01-02 09:43] LABS: Alanine Aminotransferase* 31 U/L (4-50); Alkaline Phosphatase* 76 U/L (40-150); Anion Gap 12 mEq/L (7-15); Aspartate Amino Transferase* 35 U/L (12-35); Blood Urea Nitrogen* 15 mg/dL (5-24); Calcium* 9.2 mg/dL (8.4-10.6); Carbon Dioxide* 20 mmol/L (20-32); Glucose* 91 mg/dL (60-115); Total Protein* 7.9 g/dL (6.0-8.3)
[2024-01-02 10:14] VITALS: BP 113/67; PULSE 80; RESP 16; O2SAT 99
--- NOTE | 2024-01-02 11:20 | ED.NURSE ---
Pt left ER after speaking with MD about discharge. Per MD, MD did remove pt's IV for him in the room before he left the ER. DC instructions unable to be given to pt as he departed from the ER before this fiction and nonfiction writer prose could bring in paperwork.
== END 2024-01-02 11:27 | disposition home or self-care (01) ==
PROVIDERS: Emergency Provider Family Medicine; PCP Physician Assistant Medical
DX: A08.4 Viral intestinal infection, unspecified (principal); R07.89 Other chest pain
CPT/HCPCS: 36415; 71045; 80053; 83605; 84484; 85025; 86140; 93005; 94761; 96361; 96374; 99284; 99285; J2405; J7030

== ENCOUNTER 2025-05-31 03:22 | Emergency (ER) | payer MEDICAID, SELFPAY ==
--- OUTSIDE RECORDS SUMMARY | 2025-05-31 03:25 | XMS_ITS | Clinical Summary ---
Author Organization [employer] [employer] Address [address] [place] [id number] Care Team Providers Care Counter Person Name Role Phone Lexi Lovelace Primary Care Provider Allergies No known active allergies Medications * This document contains information received from the source organization and may not represent a complete record from that organization. dextroamphetamine -amphetamine (Adderall XR) 10 mg Extended-Release capsuleIndication s:Attention deficit hyperactivity disorder (ADHD), combined type Take 1 Capsule (10 mg) by mouth once daily. 30 Capsule 4 Active pramipexole (MIRAPEX) 0.25 mg tabletIndications :RLS (restless legs syndrome) Take 0.25mg-0.5 (1-2 tab) by mouth 2-3 hours before bedtime 90 Tablet 3 5 Active dextroamphetamine -amphetamine (Adderall XR) 10 mg Extended-Release capsuleIndication s:Attention deficit hyperactivity disorder (ADHD), combined type Take 1 Capsule (10 mg) by mouth once daily. 30 Capsule 5 Active albuterol HFA (PRO-AIR; VENTOLIN; PROVENTIL) 90 mcg/actuation inhalerIndication s:SOB (shortness of breath) Inhale 1-2 Puffs by mouth every 4 hours if needed for Shortness Of Breath or Wheezing. 3 Each 3 5 Active dextroamphetamine -amphetamine 10 mg Extended-Release capsuleIndication s:Attention deficit hyperactivity disorder (ADHD), combined type Take 1 Capsule (10 mg) by mouth once daily. 30 Capsule 5 Active dextroamphetamine -amphetamine (Adderall XR) 10 mg Extended-Release capsuleIndication s:Attention deficit hyperactivity disorder (ADHD), combined type Take 1 Capsule (10 mg) by mouth once daily. 30 Capsule 5 06/26/20 25 Active dextroamphetamine -amphetamine (Adderall XR) 10 mg Extended-Release capsuleIndication s:Attention deficit hyperactivity disorder (ADHD), combined type Take 1 Capsule (10 mg) by mouth once daily. 30 Capsule 5 05/27/20 25 Active Problems Problem Noted Date Diagnosed Date Attention deficit hyperactiv ity disorder (ADHD), combined type 09/25/2015 Controlled substance agreement signed 07/12/2014 Overview (2014): Adderall XR. 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 Currently on Methadone. Tamika Martinez PA-C, Family Medicine.....................01/26/2015 2:03 PM Encounters Date Type Department Care Team Description 04/26/[address] [address] Lexi Lovelace PA Refill Request (Dextroamphetamine-amphe tamine) 03/25/2025 6:26 PM CDT - 03/25/2025 8:[address] [facility] [address] [place] [address] Lakshmi Rea MD Ball, Cathy Aparicio MD Right nephrolithiasis (Primary Dx) Discharge Disposition: Home Self Care 03/25/2025 Travel from Last 3 Months Immunizations Immunization Administration Dates Next Due COVID-19 vaccine (Moderna 100mcg/0.5mL) PF, MDV 08/10/2021,03/20/2021 DTP 07/26/1997, 3,02/29/1992,11/29,1991 Hepatitis B (Peds) 05/07/2005,02/28/2005, 004 Influenza A (H1N1), Inactiva ricardo (Age >=3 Years) 01/02/2010 Influenza, IIV3 (Age >=3 years) 09/10/2011,01/02 Influenza, IIV4 09/27/2021,12/31/2016 MMR 06/20/2004,06/21/1993 Meningococcal Vaccine (Menactra) 05/07/2005 Oral Polio Vaccine 07/26/1997, 3,1991,09/13 Td (Age >=7 Years) 06/20/2004 Tdap 06/20/2013 Tuberculin (PPD) 04/01/2012 Varicella Vaccine 01/02/2010,12/08/2008,07/01/19 94 Family History Medical History Relation Name Comments Allergies Father dad's side Heart attack Father Stroke Father Allergies Mother mom's side Asthma Mother mom's side Cancer-breast Mother Cancer-colon Paternal Grandmother great g rand mother in her 80's Diabetes Paternal Uncle uncles Relation Name Status Comments Father Alive Mother Paternal Grandmother Paternal Uncle Social History Tobacco Use Types Packs/Day Years Used Date Smoking Tobacco: Every Day Cigarettes 0.3 28.2 Started: 03/20/1997 Smokeless Tobacco: Never Tobacco Cessation:Ready to Q uit: Yes; Counseling Given: Yes Alcohol Use Standard Drinks/Week Comments No 0 (1 standard drink = 0.6 oz pur e alcohol) PHQ-2 Answer Date Recorded PHQ-2 TOTAL SCORE 2 09/26/2022 Social Connections Answer Date Recorded Do you often feel lonely or isolated from those around you? 4 01/25/2025 Financial Resource Strain Answer Date R ecorded Difficulty of Paying Living Expenses 1 01/25/2025 Difficulty of Paying Living Expenses 2 01/25/2025 Food Insecurity Answer Date Recorded Do you worry your food will run out before you are able to buy more? 2 01/25/2025 Transportation Needs Answer Date Record ed Does lack of transportation keep you from medica l appointments? 1 01/25/2025 Does lack of transportation keep you from work, meetings or getting things that you need? 1 01/25/2025 Housing Stability Answer Date Recorded What is your housing situation today? 1 01/25/2025 Interpersonal Safety Answer Date Record ed Are you being hit, kicked, p ushed or yelled at (see row info)? No 03/25/2025 Interpersonal Safety Abuse 12 - 18 Not on file 03/25/2025 Interpersonal Safety Ambulatory Vulnerability No t on file 03/25/2025 Utilities Answer Date Recorded Do you have trouble paying f or utilities (for example, heat, electricity, water, phone)? 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 Not on file Not on file Obstetrics History Last Filed Vital Signs Vital Sign Reading Time Taken Comments Blood Pressure 106/63 03/25/2025 8:16 PM CDT Pulse 71 03/25/2025 6:27 PM CDT Temperature 36.6 C (97.8 F) 03/25/2025 6:27 PM CDT Respiratory Rate 18 03/25/2025 6:27 PM CDT Oxygen Saturation 100% 03/25/2025 6:27 PM CDT Inhaled Oxygen Concentration - - Weight 95.7 kg (211 lb) 03/25/2025 6:31 PM CDT Height 172.7 cm (5' 8) 03/25/2025 6:31 PM CDT Body Mass Index 32.08 03/25/2025 6:31 PM CDT Plan of Treatment Upcoming Encounters Date Type Department Care Team (Late st Contact Info) Description 06/02/2025 1:50 PM CDT Office Visit [facility] [address] [place] [address] Tamika Martinez PA [address] [place] [id number] Health Maintenance Due Date Last Done Comments Pneumococcal series for age 6-49 (1 of 2 - PCV) 2010 BMI (ht and wt on same day) for age 18+ 02/01/2023 02/01/2022, 09/27/2021, 08/10/2021, Additional history exists Tetanus booster 06/20/2023 06/20/2013, 06/20/2004 Depression screening for age 12+ 09/25/2023 09/25/2022, 03/20/2021, 02/05/2021, Additional history exists COVID-19 vaccine series ( season) 2024 08/10/2021, 03/20/2021 Influenza Vaccine (Season Ended) 2025 09/27/2021, 12/31/2016, 09/10/2011, Additional history exists Hepatitis B series for 19+ Completed 05/07, 02/28/2005, 06/20/2004 Tdap Completed 06/20/2013 Hepatitis C screening for ag e 18-79 Completed 03/20/2021, 05/17/2020, 11/18/2019, Additional history exists HIV for age 15-65 Completed 03/25/2025, , 05/18/2021, Additional history exists Procedures Procedure Name Priority Date/Time Associated Diagnosis Comments GC CHLAMYDIA TRACH PROBE STAT 03/25/2025 7:59 PM CDT TREPONEMA PALLIDUM STAT 03/25/2025 7: 40 PM CDT RAPID HIV SCREEN STAT 03/25/2025 7:40 PM CDT UA W/ SEDIMENT EXAM REFLEXED PER CRITERIA STAT 03/25/2025 6:[address] ABDOMEN PELVIS STONE PROTOCOL WO STAT 03/25/2025 6:52 PM CDT BASIC METABOLIC PANEL STAT 03/25/2025 6:35 PM CDT CBC W PLT NO DIFF STAT 03/25/2025 6:3 5 PM CDT ANTI HCV Routine 03/20/2021 11:45 AM CDT Screen for STD (sexually transmitted disease) from Last 3 Months or Most Recently Relevant to Health Maintenance Results * GC CHLAMYDIA TRACH PROBE (03/25/2025 7:59 PM CDT) CHLAMYDIA PROBE Negative 7:49 PM CDT [facility] N GONORRHOEAE PROBE Negative 03/26/2025 7:49 PM CDT [facility] Other URINE SPECIMEN / Unknown Add On / Unknown 03/25/2025 7:59 PM CDT 03/25/2025 7:59 PM CDT us Lakshmi Rea MD MICROBIOLOGY Final Result Performing Organization Address [facility]/ZIP Co de Phone Number [facility] [address] [address], * TREPONEMA PALLIDUM (03/25/2025 7:40 PM CDT) Pathologist [facility] TREPONEMA PALLIDUM Non-Reacti ve Non-Reacti ve 03/26/2025 1:56 PM CDT [facility] Blood BLOOD SPECIMEN / Unknown Venipuncture / Unknown 03/25/2025 7:40 PM CDT 03/25/2025 7:43 PM CDT us Lakshmi Rea MD SEND OUTS Final Result [facility] [address] [place] [address], * RAPID HIV SCREEN (03/25/2025 7:40 PM CDT) RAPID HIV SCREEN Non-React yumi Non-Reactiv e, Invalid 03/25/2025 8:15 PM T [facility] Comment:A NONREACTIVE test r esult means that HIV-1 or HIV-2 antibodies and HIV-1 p24 antigen were not detected in the specimen. Blood BLOOD SPECIMEN / Unknown Venipuncture / Unknown 03/25/2025 7:40 PM CDT 03/25/2025 7:43 PM CDT Lakshmi Rea MD CHEMISTRY Final Result [facility] [address] [place] [address] * (ABNORMAL) UA W/ SEDIMENT EXAM REFLEXED PER CRITERIA (03/25/2025 6:54 PM CDT) COLOR Yellow Yellow Color 03/25/2025 7:00 PM T [facility] CLARITY Clear Clear Clarity 03/25/2025 7:00 PM [facility] SPECIFIC GRAVITY,URINE >=1.030(A) 1.010, 1.015, 1.020, 1.025 03/25/2025 7:00 PM [facility] PH,URINE 6.0 6.0, 7.0, 8.0, 5.5, 6.5, 7.5, 8.5 03/25/2025 7:00 PM [facility] UROBILINOGEN, QUALITATIVE Normal Normal EU/dl 03/25/2025 7:00 PM [facility] PROTEIN, URINE Negative Negative mg/dL 03/25/2025 7:00 PM [facility] GLUCOSE, URINE Negative Negative mg/dL 03/25/2025 7:00 PM [facility] KETONES,URINE Trace(A) Negative mg/dL 03/25/2025 7:00 PM [facility] BILIRUBIN,URI NE Negative Negative 03/25/2025 7:00 PM CDT [facility] OCCULT BLOOD,URINE Negative Negative 03/25/2025 7:00 PM CDT [facility] NITRITE Negative Negative 03/25/2025 7:00 PM CDT [facility] LEUKOCYTE ESTERASE Negative Negative 03/25/2025 7:00 PM CDT [facility] Urine URINE SPECIMEN / Unknown Non-Blood / Unknown 03/25/2025 6:54 PM CDT 03/25/2025 6:57 PM CDT us Lakshmi Rea MD URINE Final Result [facility] [address] [place] [address] * CT ABDOMEN PELVIS STONE PROTOCOL WO (03/25/2025 6:52 PM CDT) Anatomical Region Laterality Modality Abdomen, Pelvis, AORTA, LIVER, SPLEEN Computed Tomography 03/25/2025 7:43 PM CDT Impressions 03/25/2025 7:43 PM CDT Mild right hydroureter due to an obstructing 2 mm urinary calculus at the right ureterovesicular junction. Please note that all CT scans at this facility use dose modulation, iterative reconstruction, and/or weight-based dosing when appropriate to reduce radiation dose to as low as reasonably achievable. Dictated by Renny Mclaughlin MD @ 03/25/2025 7:43:33 PM (Electronically Signed) Narrative 03/25/2025 7:43 PM CDT For Patients: As a result of the 21st Century Cures Act, medical imaging exams and procedure reports are released immediately into your electronic medical record. You may view this report before your referring provider. If you have questions, please contact your health care provider. INDICATION: Flank pain. Evaluate for kidney stone. TECHNIQUE: Multiplanar CT examination of the abdomen and pelvis was performed without the use of intravenous contrast, renal stone protocol. COMPARISON: None. FINDINGS: Limited evaluation of the soft tissue organs without the use of intravenous contrast. Lower chest: No focal consolidation. Normal heart size. No pleural effusions or pneumothorax. Liver: Unremarkable. Gallbladder: Unremarkable. Biliary: Unremarkable. Pancreas: Within normal limits. Spleen: Unremarkable. Adrenal glands: Unremarkable. Renal/ureters/bladder: Kidneys are normal in size. No hydronephrosis. Mild right hydroureter. The left ureter is unremarkable. Obstructing 2 mm urinary calculus at the right ureterovesicular junction. The bladder is underdistended limiting evaluation. Limited evaluation for renal masses without the use of intravenous contrast. Pelvis: Unremarkable prostate. Gastrointestinal: Submucosal pancolonic fatty infiltration, which can be seen with chronic longstanding inflammatory bowel disease. No significant pericolonic fat stranding to suggest active disease. No bowel obstruction. Normal appendix. No significant colonic diverticulosis. Mild colonic stool burden. Vasculature: No aortic aneurysm. No significant atherosclerotic calcifications. Lymph nodes: No pathologic lymphadenopathy by size criteria. Peritoneum: No free fluid or pneumoperitoneum. No drainable fluid collections. Abdominal wall/soft tissues: Unremarkable. Bones: No acute osseous abnormalities. Procedure Note Renny Mclaughlin DO - 03/25/2025 For Patients: As a result of the Cures Act, medical imagingexams and procedure reports are released immediately into your electronicmedical record. You may view this report before your referring provider.If you have questions, please contact your health care provider. INDICATION: Flank pain. Evaluate for kidney stone. TECHNIQUE: Multiplanar CT examination of the abdomen and pelvis was performed withoutthe use of intravenous contrast, renal stone protocol. COMPARISON: None. FINDINGS: Limited evaluation of the soft tissue organs without the use ofintravenous contrast. Lower chest: No focal consolidation. Normal heart size. No pleuraleffusions or pneumothorax. Liver: Unremarkable. Gallbladder: Unremarkable. Biliary: Unremarkable. Pancreas: Within normal limits. Spleen: Unremarkable. Adrenal glands: Unremarkable. Renal/ureters/bladder: Kidneys are normal in size. No hydronephrosis. Mildright hydroureter. The left ureter is unremarkable. Obstructing 2 mmurinary calculus at the right ureterovesicular junction. The bladder isunderdistended limiting evaluation. Limited evaluation for renal masseswithout the use of intravenous contrast. Pelvis: Unremarkable prostate. Gastrointestinal: Submucosal pancolonic fatty infiltration, which can beseen with chronic longstanding inflammatory bowel disease. No significantpericolonic fat stranding to suggest active disease. No bowel obstruction.Normal appendix. No significant colonic diverticulosis. Mild colonic stoolburden. Vasculature: No aortic aneurysm. No significant atheroscleroticcalcifications. Lymph nodes: No pathologic lymphadenopathy by size criteria. Peritoneum: No free fluid or pneumoperitoneum. No drainable fluidcollections. Abdominal wall/soft tissues: Unremarkable. Bones: No acute osseous abnormalities. IMPRESSION: Mild right hydroureter due to an obstructing 2 mm urinary calculus at theright ureterovesicular junction. Please note that all CT scans at this facility use dose modulation,iterative reconstruction, and/or weight-based dosing when appropriate toreduce radiation dose to as low as reasonably achievable. Dictated by Renny Mclaughlin MD @ 03/25/2025 7:43:33 PM (Electronically Signed) Lakshmi Rea MD CT Final Result * (ABNORMAL) CBC W PLT NO DIFF (03/25/2025 6:35 PM CDT) WHITE BLOOD COUNT 12.1(H) 4.5 - 11.0 thou/cu mm 03/25/2025 6:40 PM [facility] RED BLOOD COUNT 5.34 4.30 - 5.90 mil/cu mm 03/25/2025 6:40 PM [facility] HEMOGLOBIN 16.3 13.5 - 17.5 g/dL 03/25/2025 6:40 PM T [facility] HEMATOCRIT 47.8 37.0 - 53.0 % 03/25/2025 6:40 PM [facility] MCV 90 80 - 100 fL 03/25/2025 6:40 PM T [facility] MCH 30.5 26.0 - 34.0 pg 03/25/2025 6:40 PM [facility] MCHC 34.1 32.0 - 36.0 g/dL 03/25/2025 6:40 PM [facility] RDW 13.0 11.5 - 15.5 % 03/25/2025 6:40 PM [facility] PLATELET COUNT 450(H) 140 - 440 thou/cu mm 03/25/2025 6:40 PM T [facility] MPV 8.5 6.5 - 11.0 fL 03/25/2025 6:40 PM [facility] Blood BLOOD SPECIMEN / Unknown Venipuncture / Unknown 03/25/2025 6:35 PM CDT 03/25/2025 6:37 PM CDT Lakshmi Rea MD HEMATOLOGY Final Result [facility] [address] [place] [address] * BASIC METABOLIC PANEL (03/25/2025 6:35 PM CDT) SODIUM 140 136 - 145 mmol/L 03/25/2025 6:55 PM [facility] POTASSIUM 4.0 3.5 - 5.1 mmol/L 03/25/2025 6:55 PM [facility] CHLORIDE 105 98 - 107 mmol/L 03/25/2025 6:55 PM [facility] CO2,TOTAL 23 22 - 29 mmol/L 03/25/2025 6:55 PM [facility] ANION GAP 12 5 - 18 03/25/2025 6:55 PM [facility] GLUCOSE 95 70 - 99 mg/dL 03/25/2025 6:55 PM [facility] CALCIUM 9.3 8.8 - 10.4 mg/dL 03/25/2025 6:55 PM [facility] Comment: Reference ranges for this test were updated on 10/05/2024 to reflect our healthy population more accurately. Reference range changes are not retroactively applied to results, but previous results using the same methodology can be interpreted in the context of the new reference range. BUN 10 6 - 20 mg/dL 03/25/2025 6:55 PM [facility] CREATININE 0.91 0.70 - 1.20 mg/dL 03/25/2025 6:55 PM [facility] BUN/CREAT RATIO 11 10 - 20 6:55 PM CDT [facility] eGFR >90 >90 mL/min/1.7 3m2 03/25/2025 6:55 PM CDT [facility] Comment:As of 2022, eG FR is calculated by the CKD-EPI creatinine equation without race adjustment. eGFR can be influenced by muscle mass, exercise, and diet. The reported eGFR is an estimation only and is only applicable if the renal function is stable. Blood BLOOD SPECIMEN / Unknown Venipuncture / Unknown 03/25/2025 6:35 PM CDT 03/25/2025 6:37 PM CDT us Lakshmi Rea MD CHEMISTRY Final Result [facility] [address] [place] [address] * ANTI HCV (03/20/2021 11:45 AM CDT) HEPATITIS C ANTIBODY Non-React yumi Non-React yumi 03/20/2021 6:34 PM CDT [facility] Comment:Antibodies to HCV no t detected; does not exclude the possibility of exposure to HCV. Blood BLOOD SPECIMEN / Unknown Venipuncture / Unknown 03/20/2021 11:45 AM CDT 03/20/2021 11:50 AM CDT us Lexi LAYNE SEND OUTS Final R esult [facility] [address] [place] [address], [place] from Last 3 Months or Most Recently Relevant to Health Maintenance Additional Health Concerns Infection Onset Date Last Indicated MRSA Comment:Order contact precautions. Nares surveillance cultures needed to clear patient. #1 #2 +MRSA Right Ear Lobe 12/17/14 01/16/2015 01/16/2015 Insurance [facility] Advance Directives * Full Code (Latest Code Status on File) Date Activated Date Inactivated Comments 04/25/2012 4:04 AM 04/28/2012 4:25 PM Care Teams Counter Person Relationship Specialty Start Date End Date Lexi Lovelace PA [address] [place] [address] PCP - General Family Practice 06/02/17
[2025-05-31 03:31] VITALS: BP 125/74; PULSE 62; RESP 20; TEMP 36.3; O2SAT 98; BMI 22.8
[2025-05-31 03:54] VITALS: TEMP 36.3
--- NOTE | 2025-05-31 04:01 | ED.GENADULT ---
HPI - General Adult General Chief complaint: Extremity Pain/Injury, Upper Stated complaint: pinched nerve R shoulder Time Seen by Provider: 05/31/25 03:37 Source: patient Mode of arrival: ambulatory Limitations: other (Poor historian) History of Present Illness HPI narrative: 34-year-old male presents to the emergency department in the wee hours for evaluation of right shoulder pain, reports that this has been present for 2 days. Located in the right posterior upper shoulder blade area. No specific trauma or injury, does work in [employer] and thinks he might have ?overdone it?. He Dodges my questions, citing that he is in pain and just needs treatment before he answers my questions. He is accompanied by his young daughter as well who does interrupt frequently. It was a very difficult interview. He shakes his head no and size and exasperation when I ask about numbness or tingling. When I ask if the pain radiates down the arm he slapped his other hand onto the deltoid, biceps, upper triceps area but does not discretely show me where. He denies prior history of similar shoulder problems, prior neck problems, trauma or surgery. Denies neck pain today. Supraspinatus area is the main area of pain. No difficulty moving fingers, wrists, elbow. Pain with all movements per patient. Tried taking a small dose of Tylenol just prior to coming to the ED but denies regular use of Tylenol or ibuprofen for the last few days for this injury. Has not sought medical care prior to this visit to the ED. denies pain or injury to other areas. No shortness of breath, chest symptoms, skin changes. Reports that his past medical history is benign but history from prior notes indicates ADHD and some prior mental health issues. Daughter tells us that he takes medications but he does not list them for me. No drug allergies. Records indicate that he has been prescribed Adderall and Seroquel at some point. Social history reviewed. ROS is notable for the musculoskeletal symptoms as above. Denies any focal the other generalized, respiratory, cardiac, skin, neurological or other musculoskeletal changes. Related Data Home Medications ?Medication ?Instructions ?Recorded ?Confirmed dextroamphetamine-amphetamine ER 40 mg PO DAILY 09/11/22 08/18/23 20 mg 24hr capsule,extend release (Adderall XR) quetiapine 50 mg tablet,extended 50 mg PO QPM 07/30/23 08/18/23 release 24 hr Previous Rx's ?Medication ?Instructions ?Recorded cyclobenzaprine 10 mg tablet 10 mg PO TID PRN muscle spasm #30 08/18/23 tabs ketorolac 10 mg tablet 10 mg PO TID PRN pain 5 days #14 08/18/23 tabs prednisone 20 mg tablet 20 mg PO BID #10 tabs 08/18/23 ondansetron 4 mg disintegrating 4 mg PO Q6H PRN nausea and 01/02/24 tablet vomiting #20 tabs Allergies Allergy/AdvReac Type Severity Reaction Status Date / Time No Known Drug Allergies Allergy Verified 08/18/23 09:50 PFSH [facility] Social History Smoking Status: Current some day smoker What tobacco products do you use: cigars Do you use any of these nicotine containing products: None Second hand tobacco smoke exposure: No How often do you have a drink containing alcohol: never How often do you have six or more drinks on one occasion: Never AUDIT-C Alcohol total score: 0 Non-prescribed substance use: former substance user and marijuana (any form) service: No Exam Const: Vital Signs, click to edit/add: Vital Signs - 24 hr 05/31/25 03:31 05/31/25 03:54 Temperature 97.4 F L 97.4 F L Pulse Rate [Right Pulse Oximeter] 62 Respiratory Rate 20 Blood Pressure [Ri ght Upper Arm] 125/74 Pulse Oximetry 98 Oxygen Delivery Me thod Room Air Documenting provider has reviewed patient's vital signs: yes Common normals: alert Other: Does seem to be in mild distress from pain. Not the most cooperative with answering my questions today. No obvious signs of trauma or injury. Does not seem intoxicated or impaired. HENMT: Common normals: normocephalic and head/scalp atraumatic Head and scalp: normocephalic and atraumatic Face and sinus: normal facial exam Eye: General eye: normal appearance of both eyes Neck & C-Spine: Common normals: full ROM and no lymphadenopathy General: normal visual inspection Cervical spine: paracervical muscle tenderness (C7, C8 area only.) right; no cervical spine tenderness and no step off deformity Chest: Common normals: inspection of chest normal Resp: Common normals: normal respiratory effort, no use of accessory muscles and clear to auscultation bilaterally Effort & inspection: able to speak in complete sentences Auscultation: clear to auscultation bilaterally Cardio: Common normals: regular rate, regular rhythm, S1 normal heart sound, S2 normal heart sound and no murmurs Rate: regular rate Rhythm: regular rhythm Heart sounds: S1 normal and S2 normal Back & Pelvis: Common normals: thoracic and lumbar spine normal to inspection Extremity: Other: Both shoulders without deformity or signs of trauma. Left shoulder has normal range of motion. He wee resists exam, seemingly frustrated by my insistence on examining the opposite shoulder. But normal internal and external rotation, normal strength, no impingement signs. Difficult exam on the right side. He has significant pain with flexion and internal rotation less so with extension or external rotation. He has difficulty with abduction for active motion but it is much easier for passive motion. No signs of effusion. There is some tenderness with palpation of the supraspinatus but also the levator muscles. Positive impingement signs on exam. Normal range of motion and strength in right elbow, wrist and hand. No sensory deficit. Neuro: Sensorium/orientation: alert Speech: speech normal Psych: Activity/motor behavior: appropriate eye contact Insight: fair Judgement: fair Skin: Common normals: no rashes or lesions noted General skin exam: no rashes or lesions noted Course Course ED Course: 34-year-old male with right shoulder pain of 2 days duration with no specific trauma or injury but does work in [employer] field. I think that the main problem is a rotator cuff strain. Positive impingement signs on exam. I think that the cervical and levator tenderness as well as the trapezius tightness seem to be from guarding of the right shoulder. There is not seem to be any severe neurological impingement or vascular emergency. Counseled patient on findings. He is expecting to drive himself and his child home. I counseled patient that because of this I will prescribe him pain medication but he will need to wait until he gets home to take it for safety concerns. Here in the ED, will start with 30 of IM Toradol. I counseled patient that starting prednisone would probably help a lot but I do have concerns with giving it to him at 4:00 a.m. in the morning because it may cause insomnia. He agrees with this thought and would prefer a prescription that he can take after a few hours of sleep. Will start prednisone 20 b.i.d. for 5 days. Counseled patient that it will likely take 24-48 hours to fully kick in, rationale an use discussed. For acute pain in addition to the Toradol given in the ED, will also treat with Flexeril 10 mg b.i.d. p.r.n. and a total of for hydrocodone tablets as prescribed for severe pain. Patient is counseled on appropriate use of [id number] pain medications like Tylenol and ibuprofen as first-line agents. He is instructed to make a follow-up appointment in clinic or urgent care if his symptoms are not improving in 5 days and he is given a work note for today only. If additional restrictions are needed, those need to come from a physician or physical therapist that can appropriately follow up with patient for long-term management. Written exercises were also given that can help reduce inflammation and reduce the chance of injury and I have recommended that he schedule with a physical therapist. Prescriptions provided from [facility]. Vital Signs Vital signs: Initial Vital Signs Temperature 97.4 F L 05/31/25 03:31 Temperature Source Temporal Artery Scan 05/31/25 03:31 Pulse Rate 62 05/31/25 03:31 Respiratory Rate 20 05/31/25 03:31 Blood Pressure 125/74 05/31/25 03:31 Blood Pressure Mean 91 05/31/25 03:31 Blood Pressure Position Supine 05/31/25 03:31 Pulse Oximetry 98 05/31/25 03:31 Oxygen Delivery Method Room Air 05/31/25 03:31 Vital Signs Temperature 97.4 F L 05/31/25 03:31 Pulse Rate 62 05/31/25 03:31 Respiratory Rate 20 05/31/25 03:31 Blood Pressure 125/74 05/31/25 03:31 Pulse Oximetry 98 05/31/25 03:31 Oxygen Delivery Method Room Air 05/31/25 03:31 Temperature 97.4 F L 05/31/25 03:54 Pulse Rate 62 05/31/25 03:31 Respiratory Rate 20 05/31/25 03:31 Blood Pressure 125/74 05/31/25 03:31 Pulse Oximetry 98 05/31/25 03:31 Oxygen Delivery Method Room Air 05/31/25 03:31 Medications Administered Medications: Generic Name Dose Route Start Last Admin Trade Name Abel PRN Reason Stop Dose Admin Ketorolac Tromethamine 30 mg 05/31/25 03:48 05/31/25 03:54 Ketorolac 30 Mg/Ml Inj IM 05/31/25 03:49 30 mg ONCE ONE Administration Discharge Plan Discharge Clinical Impression: Right shoulder strain Patient Disposition: Home, Self-Care Condition: Stable Instructions: Rotator Cuff Injury (ED), Rotator Cuff Injury Exercises (DC) Additional Instructions: As we discussed, the problem seems to be coming from a nerve being pressed between your neck and shoulder joint, a common area of problem for many people. Often, there is some underlying arthritis, overuse of the muscles and shoulders and strain on the rotator cuff tendons that contribute to sudden flare up of pain in this area. Based on your exam, there does not seem to be evidence of a complete rotator cuff tear, cervical spine injury or other emergent type condition. Nerves tend to be more reactive at night, often making the pain worse then. Remember that proper dosing of Tylenol is 1000 mg every 6 hours for pain. In addition to this, you may use ibuprofen 600 mg every 6 hours. I have given you a very limited supply of hydrocodone to use for severe pain only, intended only for night. I would recommend that you take 1 tablet of this as soon as you get home as we do not recommend driving on this medication. You will also take 1 tablet of Flexeril, the muscle relaxant. I would recommend that you primarily use this at night but you may also use a half a tablet during the day if you are not working and the pain is still quite bothersome. The most important treatment that we will do is a course of prednisone, and anti-inflammatory medication that will calm down the irritation of the tendons and the soft tissues that are pressing on the nerve. He will take 1 pill twice daily. As we discussed, it can cause insomnia so I recommend that you take it 1st thing in the morning and then early evening, but not within 3-4 hours of bedtime. It is okay to use gentle sleep aids like 10 mg of melatonin, 25-50 mg of Benadryl or other gentle sleep aids in addition to the medicines that have been prescribed. It will take about 24-48 hours for the prednisone to start kicking in. If you have not noticed any improvement in the shoulder pain after the 5 day course of prednisone, please make a clinic appointment to have this further evaluated. At that time, x-rays and further workup would be needed. You would benefit significantly from a course of physical therapy and may schedule this at your convenience at your physical therapy center of choice. You should come to emergency room if you have loss of neurological function in the arm, meaning inability to move the arm, a severe new injury, or signs of a major medical complication. I would like you off work today but you may return tomorrow. If you need additional work restrictions, these need to come from her primary care physician or physical therapist who can follow up with you to determine appropriate progress. Activity Level: Activity as Tolerated Discharge Diet: Regular Prescriptions: No Action quetiapine 50 mg tablet extended release 24 hr 50 mg PO QPM cyclobenzaprine 10 mg tablet 10 mg PO TID PRN (Reason: muscle spasm) Qty: 30 0RF prednisone 20 mg tablet 20 mg PO BID Qty: 10 0RF ketorolac 10 mg tablet 10 mg PO TID PRN (Reason: pain) 5 Days Qty: 14 0RF ondansetron 4 mg tablet,disintegrating 4 mg PO Q6H PRN (Reason: nausea and vomiting) Qty: 20 0RF dextroamphetamine-amphetamine [Adderall XR] 20 mg capsule,extended release 24hr 40 mg PO DAILY Follow Up/Referrals: Lexi Lovelace PA-C [Primary Care Provider, Family Practice] Stand Alone Forms: [employer] Info Instructions
[2025-05-31 04:02] VITALS: BP 121/68; PULSE 68; RESP 20; TEMP 36.5; O2SAT 98
[2025-05-31 04:08] VITALS: BP 121/68; PULSE 68; RESP 20; TEMP 36.5
== END 2025-05-31 04:09 | disposition home or self-care (01) ==
LOC: ED 04:00
PROVIDERS: Emergency Provider Family Medicine; PCP Physician Assistant Medical
DX: S46.011A Strain of muscle(s) and tendon(s) of the rotator cuff of right shoulder, initial encounter (principal)
CPT/HCPCS: 96372; 99283; J1885